=== PATIENT | female | born 1965 | race Two or more races ===

== ENCOUNTER 2021-02-23 10:53 | Inpatient (IN) | payer MEDICARE, MEDICAID ==
[~2021-02-23] VITALS: Ht 147.3 cm; Wt 31.0 kg
[2021-02-23] VITALS (7 sets, daily range): BP systolic 106–113; BP diastolic 68–85
[~2021-02-23 10:53] MED LIST: DIAZ5TAB3 PO; IPRA0.035; LORA10TA58 OR; NAS17NSL; OXYB5TAB24; PHEN60IN PO
[2021-02-23 12:08] LABS: Basophils # (auto) 0 10 ^3/uL (0-0.2); Basophils % (auto) 1.4 % (0.0-2.0)
[2021-02-23 12:17] LABS: Eosinophils # (auto) 0.2 10 ^3/uL (0-0.8); Eosinophils % (auto) 7.1 % (0.0-7.0); Hematocrit 19.9 % (36.0-46.0); Lymphocytes # (auto) 1.2 10 ^3/uL (0.4-5.4); Lymphocytes % (auto) 37.8 % (10.0-50.0); Mean Corpuscular Hemoglobin 18.3 pg (28.0-32.0); Mean Corpuscular Hgb Conc. 29.7 g/dL (32.0-36.0); Mean Corpuscular Volume 61.5 fL (80.0-100.0); Monocytes # (auto) 0.3 10 ^3/uL (0-1.3); Monocytes % (auto) 8.4 % (0.0-12.0); Neutrophils # (auto) 1.4 10 ^3/uL (1.6-8.6); Neutrophils % (auto) 45.3 % (37.0-80.0); Nucleated Red Blood Cells % 0.3 %; Red Blood Cells 3.23 10^6/uL (4.0-5.20); Red Cell Distribution Width 19.3 % (11.8-14.3); White Blood Cell 3.2 10^3/uL (4.4-10.8)
[2021-02-23 12:21] LABS: Albumin 3.1 g/dL (3.4-5.0); Calcium 8.4 mg/dL (8.5-10.1); INR 0.98 (0.9-1.15); Partial Thromboplastin Time 23.4 sec (23.6-33.0)
[2021-02-23 12:24] LABS: BUN/Creatinine Ratio 44.4; Bilirubin, Total 0.2 mg/dL (0.2-1.0); Hemoglobin 5.9 g/dL (12.2-16.2); Total Protein 7.2 g/dL (6.4-8.2)
[2021-02-23] MEDS ORDERED: ACETAMINOPHEN 500 MG TAB PO PRN (14:00)
[2021-02-23] MEDS ORDERED: MORPHINE SULFATE INJECTION 2 MG/ML SYRG IV PRN (14:00)
[2021-02-23] MEDS ORDERED: LORATADINE PO SCH (14:00)
[2021-02-23] MEDS ORDERED: NITROGLYCERIN 0.4 MG SL TAB SL PRN (14:00)
[2021-02-23] MEDS ORDERED: PSEUDOEPHEDRINE PO SCH (14:00)
[2021-02-23] MEDS ORDERED: traMADol HCL 50 MG TAB PO PRN (14:00)
[2021-02-23 20:27] LABS: % Iron Saturation 36.7 % (15-50)
[2021-02-23] MEDS: PHENobarbital 32.4 MG TAB PO SCH (21:16)
[2021-02-23] MEDS: BUDESONIDE (INHALATION) 0.5 MG/2 ML NEB NEB SCH (21:40)
[2021-02-24] MEDS ORDERED: CLON-853 PO (02:18)
[2021-02-24] MEDS ORDERED: FLUT0.05 NAS (02:18)
[2021-02-24] MEDS ORDERED: OXYB5TAB24 PO (02:18)
[2021-02-24] MEDS ORDERED: PHEN32.44 PO (02:18)
[2021-02-24 02:30] VITALS: BP 104/71
[2021-02-24 05:00] VITALS: BP 104/71
[2021-02-24 05:56] LABS: Hemoglobin 9.3 g/dL (12.2-16.2)
[2021-02-24 06:03] LABS: Hematocrit 27.7 % (36.0-46.0); Mean Corpuscular Hgb Conc. 33.6 g/dL (32.0-36.0); Mean Corpuscular Volume 68.5 fL (80.0-100.0); Red Blood Cells 4.04 10^6/uL (4.0-5.20); White Blood Cell 5.6 10^3/uL (4.4-10.8)
[2021-02-24 06:33] LABS: Band Neutrophils % (manual) 0; Basophils % (manual) 0 (0.0-2.0); Blast Cells 0; Metamyelocytes % 0; Myelocytes % 0; Promyelocytes % 0; Reactive Lymphocytes 0; Red Cell Distribution Width 25.9 % (11.8-14.3)
[2021-02-24 08:12] LABS: Eosinophils % (manual) 2 (0-7); Lymphocytes % (manual) 25 (10.0-50.0); Monocytes % (manual) 3 (0-12)
[2021-02-24 09:00] VITALS: BP 108/72
[2021-02-24] MEDS: BUDESONIDE (INHALATION) 0.5 MG/2 ML NEB NEB SCH ×2 (10:37→22:33)
[2021-02-24] MEDS: PHENobarbital 32.4 MG TAB PO SCH ×2 (10:39→22:05)
[2021-02-24] MEDS: clonazePAM 0.5 MG TAB PO PRN ×2 (10:39→22:05)
[2021-02-24 10:44] LABS: Folate (Folic Acid) 15.63 ng/mL (5.38-24)
[2021-02-24 13:00] VITALS: BP 165/94
[2021-02-24 17:00] VITALS: BP 107/68
[2021-02-24 21:37] VITALS: BP 99/55
[2021-02-25 05:22] VITALS: BP 115/77
[2021-02-25 05:33] LABS: Hemoglobin 9.8 g/dL (12.2-16.2); White Blood Cell 6.7 10^3/uL (4.4-10.8)
[2021-02-25 05:36] LABS: Hematocrit 30.7 % (36.0-46.0); Mean Corpuscular Hgb Conc. 31.9 g/dL (32.0-36.0); Mean Corpuscular Volume 68.9 fL (80.0-100.0); Red Blood Cells 4.46 10^6/uL (4.0-5.20)
[2021-02-25 05:54] LABS: Red Cell Distribution Width 26.3 % (11.8-14.3)
[2021-02-25 05:56] LABS: Band Neutrophils % (manual) 0; Basophils % (manual) 0 (0.0-2.0); Blast Cells 0; Eosinophils % (manual) 0 (0-7); Metamyelocytes % 0; Myelocytes % 0; Promyelocytes % 0; Reactive Lymphocytes 0
[2021-02-25 07:22] LABS: Lymphocytes % (manual) 15 (10.0-50.0); Monocytes % (manual) 8 (0-12)
[2021-02-25 08:00] VITALS: BP 110/76
[2021-02-25 09:00] VITALS: BP 110/76
[2021-02-25] MEDS: BUDESONIDE (INHALATION) 0.5 MG/2 ML NEB NEB SCH (10:38)
[2021-02-25] MEDS: PHENobarbital 32.4 MG TAB PO SCH (11:02)
[2021-02-25 13:00] VITALS: BP 107/75
[2021-02-25 13:46] VITALS: BP 107/75
== END 2021-02-25 18:00 | disposition home or self-care (01) | DRG 812 ==
LOC: ER 10:53 → OVERFLOW 13:46 → WEST WING 18:42
PROVIDERS: ADMIT Nurse Practitioner Acute Care; ATTEND Family Medicine
PROC: 30233N1 Transfusion of Nonautologous Red Blood Cells into Peripheral Vein, Percutaneous Approach (ICD-10-PCS; principal; 2021-02-23)
DX: D64.9 Anemia, unspecified (principal); R64 Cachexia; Z68.1 Body mass index [BMI] 19.9 or less, adult; G40.909 Epilepsy, unspecified, not intractable, without status epilepticus; Z20.822 Contact with and (suspected) exposure to COVID-19; G80.9 Cerebral palsy, unspecified; Z74.01 Bed confinement status
CPT/HCPCS: 36415; 80053; 82270; 82746; 83540; 83550; 84425; 85007; 85025; 85027; 85045; 85610; 85730; 86850; 86900; 86901; 86920; 87426; 94640; G0378